=== PATIENT | male | born 1960 | race Caucasian/White ===

== ENCOUNTER 2019-10-09 07:24 | Outpatient (CLI) | payer BC, SELFPAY ==
[2019-10-09 09:00] LABS: Blood Urea Nitrogen 12 mg/dL (8-23)
== END 2019-10-09 07:25 | disposition home or self-care (01) ==
LOC: RADSHAW 07:28
PROVIDERS: Family Provider Nurse Practitioner Family; PCP Nurse Practitioner Family; Visit Provider Family Medicine
DX: R51 Headache (principal)
CPT/HCPCS: 82565; 84520

== ENCOUNTER → 2021-04-06 15:44 | Outpatient (BNVA) | payer BC, SELFPAY | PROVIDERS: PCP Nurse Practitioner Family; Visit Provider Podiatrist Foot & Ankle Surgery | DX: M79.673 Pain in unspecified foot (principal); M79.671 Pain in right foot | CPT/HCPCS: 73630 ==

== ENCOUNTER 2021-09-28 13:59 | Outpatient (CLI) | payer BC, SELFPAY | END 2021-09-28 14:00 | disposition home or self-care (01) | LOC: SPT 14:00 | PROVIDERS: PCP Nurse Practitioner Family; Visit Provider Podiatrist Foot & Ankle Surgery | DX: Z46.89 Encounter for fitting and adjustment of other specified devices (principal); M72.2 Plantar fascial fibromatosis | CPT/HCPCS: 97760; L3030 ==